=== PATIENT | female | born 1960 | race Caucasian/White ===

== ENCOUNTER 2016-12-23 10:44 | Emergency (ER) | payer BC ==
--- NOTE | ~2016-12-23 | CR72 ---
[facility]. [facility] A Service of [facility] & [facility] RADIOLOGY TEXT RESULTS PATIENT: YANG CURIEL LOCATION: SED : 60 UNIT #: [id number] AGE: [address]: Eleni Chino MD SEX: F ORDER DR: [id number] [place] [id number] MR#: [id number] Acc #: [id number] NAME: YANG CURIEL : 1960 SEX: F STUDY DATE/TIME: 12/23/2016 11:18 UNIT: SED ROOM: STUDY DESCRIPTION: CR Chest Single View Portable Attending Physician: Eleni Chino M.D. Referring Physician: Eleni Chino M.D. Ordering Physician: Eleni Chino M.D. MEDICAL IMAGING REPORT This report is preliminary unless electronic signature is present. EXAM Chest, portable, 12/23/2016, 1118 hours. CLINICAL HISTORY Left-sided chest pain radiates to left arm since 0745 hours today. COMPARISON None. FINDINGS Portable upright chest demonstrates heart size within normal limits. There is a tortuous aorta. There is mild elevation of the right hemidiaphragm. The lungs are clear. There is no effusion or pneumothorax. IMPRESSION 1. Heart size at the upper limits of normal with tortuous aorta. The lungs are clear and there are no effusions. There is mild elevation of the right hemidiaphragm. Dictated by... Perri Freeman M.D. THIS IS AN ELECTRONICALLY VERIFIED REPORT Perri Freeman M.D. at 12/26/2016 9:29 AM DENNY/axel TD: 12/23/2016 12:07 JOB #: [id number] MEDICAL IMAGING REPORT Page 1 of 1
--- NOTE | ~2016-12-23 | EKG ---
PATIENT: YANG CURIEL UNIT #: [id number] Ventricular Rate: 79 BPM Atrial Rate: 79 BPM P-R Interval: 126 ms QRS Duration: 84 ms Q-T Interval: 376 ms QTC Calculation(Bezet): 431 ms P [place]: 75 degrees Calculated R [place]: 15 degrees Calculated T [place]: 32 degrees Diagnosis Line: Normal sinus rhythm Diagnosis Line: Possible Biatrial enlargement Diagnosis Line: Borderline ECG Diagnosis Line: No previous ECGs available Diagnosis Line: Confirmed by THA HARDEN MD ([id number]) on 12/28/2016 Diagnosis Line: 7:59:34 PM INTERPRETING MD: FINA FLORENTINO
[2016-12-23 10:43] LABS: BASOPHIL# 0.1 X10e3 (0-0.3); EOSINOPHIL# 0.1 X10e3 (0-0.7); EOSINOPHIL% 1.8 % (0.0-7.0); HEMATOCRIT 42.3 % (35.0-45.0); HEMOGLOBIN 14.2 gm/dL (12.0-16.0); LYMPHOCYTE# 1.7 X10e3 (1.0-3.5); LYMPHOCYTE% 24.3 % (17.0-45.0); MEAN CELL VOLUME 90.5 FL (83-96); MEAN CORPUSCULAR HEMOGLOBIN 30.3 PG (28-34); MEAN CORPUSCULAR HGB CONC 33.5 g/dL (30-36); MEAN PLATELET VOLUME 9.5 FL (6.5-11.5); MONOCYTE# 0.5 X10e3 (0-1.0); MONOCYTE% 7.1 % (3.0-12.0); NEUTROPHIL# 4.5 X10e3 (1.5-7.1); NEUTROPHIL% 65.8 % (40-75); PLATELET COUNT 191 X10e3 (140-420); RED BLOOD COUNT 4.68 X10e (3.90-5.30); RED CELL DISTRIBUTION WIDTH 12.8 % (11.0-15.5); WHITE BLOOD COUNT 6.8 X10e3 (4.0-10.5)
[~2016-12-23 10:44] MED LIST: AMOXICILLIN PO; FIORINAL CAPSUL1 CAP PO; IBUPROFEN PO; MOBIC PO
[2016-12-23 10:46] LABS: DIFF IND NO
[2016-12-23 11:01] LABS: POC - CKMB 1.1 ng/mL (0.0-7.9)
[2016-12-23 11:02] LABS: POC - TROPONIN <0.05 ng/mL (<=0.05)
[2016-12-23 11:22] LABS: ALBUMIN SERUM 4.6 g/dL (3.5-5.0); BILIRUBIN, DIRECT 0.1 mg/dL (0.0-0.2); BILIRUBIN,INDIRECT 0.3 mg/dL (0.0-0.9); BILIRUBIN,TOTAL 0.4 mg/dL (0.2-2.0); CALCIUM SERUM 9.4 mg/dL (8.4-10.2); CREATININE SERUM 0.5 mg/dL (0.6-1.4); GLOM FILT RATE Estimated 108.2 mL/min (>60); POTASSIUM 3.8 mmol/L (3.5-5.1); PROTEIN TOTAL SERUM 8.1 g/dL (6.0-8.3)
[2016-12-23 11:26] LABS: PROTHROMBIN TIME (PATIENT) 11.5 SECONDS (9.5-12.4)
[2016-12-23 11:33] LABS: PARTIAL THROMBOPLASTIN TIME 27.9 SECONDS (25.6-38.1)
[2016-12-23 12:09] LABS: POC - CKMB <1.0 ng/mL (0.0-7.9); POC - MYOGLOBIN 89.7 ng/mL (0.0-169.0); POC - TROPONIN <0.05 ng/mL (<=0.05)
== END 2016-12-23 13:58 ==
LOC: SED 10:44
PROVIDERS: Emergency Medicine
DX: R07.89 Other chest pain (principal); I10 Essential (primary) hypertension; Z98.890 Other specified postprocedural states; Z90.710 Acquired absence of both cervix and uterus
CPT/HCPCS: 71010; 80048; 80076; 82553; 83874; 83880; 84484; 85025; 85610; 85730; 93005; 99285; J2405